=== PATIENT | female | born 1945 | race African-American/Black ===

== ENCOUNTER 2022-10-13 10:33 | Observation (INO) ==
--- NOTE | 2022-10-13 10:57 | XRay Report ---
XR chest 1V portable CLINICAL HISTORY: Chest pain, nonspecific COMPARISON STUDY: No previous studies for comparison. FINDINGS: Lung volumes are mildly diminished. There is no pneumothorax or pleural effusion. There is no evidence for pneumonia. Moderate cardiomegaly is noted. Pulmonary vascularity is normal. IMPRESSION: No acute cardiopulmonary findings. Cardiomegaly. ACT 112: Negative or not required by law. Electronically signed by: Ismael Garcia M.D. 10/13/2022 10:56 AM
[2022-10-13 11:02] LABS: Basophils # (auto) 0.02 K/uL (0-0.2); Basophils % (auto) 0.6 %; Eosinophils # (auto) 0.07 K/uL (0-0.50); Eosinophils % (auto) 2.2 %; Hematocrit (blood only) 36.1 % (37.0-47.0); Hemoglobin 11.8 g/dl (12.0-16.0); Immature Granulocytes # (auto) 0.01 K/uL (0.01-0.20); Immature Granulocytes % (auto) 0.3 %; Lymphocytes # (auto) 1.26 K/uL (1.2-3.4); Lymphocytes % (auto) 39.6 %; Mean Corpuscular Hemoglobin 29.4 pg (25.0-34.0); Mean Corpuscular Hgb Conc 32.7 g/dL (32.0-36.0); Mean Platelet Volume 9.7 fL (9.4-12.4); Monocytes # (auto) 0.26 K/uL (0.11-0.59); Monocytes % (auto) 8.2 %; Neutrophils # (auto) 1.56 K/uL (1.40-6.50); Neutrophils % (auto) 49.1 %; Platelet Count 257 K/uL (130-400); RDW Coefficient of Variation 13.5 % (11.5-14.5); RDW Standard Deviation 44.7 fL (36.4-46.3); Red Blood Count 4.01 M/uL (4.20-5.40); White Blood Count 3.18 K/ul (4.8-10.8)
[2022-10-13 11:17] LABS: Albumin Globulin Ratio 1.4 (0.9-2); Albumin Level 3.8 gm/dl (3.4-5.0); BUN Creatinine Ratio 12.3 (10-20); Bilirubin,Total 0.8 mg/dl (0.2-1.0); Calcium 8.8 mg/dl (8.6-10.3); Creatinine Clr Calc Pharmacy 35.7 ml/min; Est GFR (African American) 37.9 ml/min; Est GFR (Non-African American) 32.7 ml/min; Globulin 2.8 gm/dl (2.5-4.0); Potassium 3.4 mmol/L (3.5-5.1); Total Protein 6.6 gm/dl (6.0-8.3)
--- NOTE | 2022-10-13 12:07 | History & Physical Report ---
Date of Service October 13, 2022 Assessment & Plan (1) Chest pain: Plan: -Admit to med/tele -At this time the etiology of the patient's episode of chest discomfort this am sounds more consistent with possible reflux occurring after breakfast and while lying down, but cannot completely rule out ACS at this time. -No hypoxia, tachycardia, HTN, or pleuritic chest pain to suggest PE -Patient became nauseous after eating waffles then appeared to have a possible vaso-vagal episode with her bowel movement. She then experienced the substernal chest discomfort while lying down. -The ED staff reported ST depressions from EMS on route, her ECG in the ED does show T-wave inversion in the lateral leads -Initial high sen trop WNL, obtaining a STAT 2 hour repeat now -S/P 324 mg PO aspirin by EMS in route -Will obtain STAT TTE for further assessment; will also order a dobutamine stress echo for tomorrow morning -Continue to monitor on tele -BL SCD's and SQ heparin for DVT PPX -AM CBC, BMP, Mag (2) Hypokalemia: Plan: -Noted to be 3.4 today -likely due to her HCTZ -Will give 40 meq PO KCL now -Monitor on tele and monitor am electrolytes (3) Hyperlipidemia: Plan: -Continue statin (4) HTN (hypertension): Plan: -Stable -Continue amlodipine and coreg -Will hold HCTZ for now as her Cr appears mildly elevated and we are unsure of her baseline (5) GERD (gastroesophageal reflux disease): Plan: -Will give a dose of 20 mg IV famotidine now, then continue BID while admitted -Monitor for improvement of symptoms while on IV famotidine Plan The patient was discussed with Dr. Ivey at the time of the admission History of Present Illness Chief Complaint: Chest pain, nausea Primary Care Provider: Uriel Emmanuel is a very pleasant 77 year old female with a PMH significant for HTN, hyperlipidemia, GERD who presented to the [facility] ED via EMS on 10/13/22 with a complaint f chest pain, diaphoresis, and nausea this am. In the ED she was noted to be bradycardic with HR in the 50's, otherwise vitals were stable. Labs including CBC, CMP, High sen trop, and Covid 19 swab were significant for a potassium of 3.4, otherwise WNL. Per EMS the patient initially had some ST depressions and t-wave inversions on ECG in route. Chest xray today was negative for acute findings. Prior to admission the patient was given given 324 mg PO aspirin by EMS. At the time of the exam the patient was sitting in bed in no acute distress with her grandson sitting bedside. She is in town for his graduation from [employer] yesterday. She states that she was in her normal state of health when waking this am. She had some waffles for breakfast around 0930 today and shortly after developed nausea. She then felt as though she needed to have a bowel movement and went to the bathroom. She had a normal BM then experiencing increased nausea, as-well-as feeling hot and sweaty. She went and laid down for a few minutes and then started to develop substernal chest pressure. The discomfort did not radiate anywhere and only last for approximately 15 minutes. She states that she was nauseous again in the ambulance and was given medication which resolved her symptoms. She is currently without any of her recent symptoms. She denies recent fever, chills, cough, sob, abd pain, hematemesis, dysuria, hematuria, melena, LE swelling, and recent trauma. She denies a previous history of cardiac disease and/or ID's. No previous history of diabetes. She is able to walk up a flight of stairs without significant chest discomfort or SOB. We discussed code status, she is a Full code and would want her grandson to make medical decisions for her if she cannot make them herself. Please refer to Dr. Ivey's attestation for any changes to the treatment plan Allergies Allergy/AdvReac Type Severity Reaction Status Date / Time No Known Allergies Allergy Unverified 10/13/22 13:11 Home Medications Medication Instructions Recorded Confirmed Type amlodipine 5 mg tablet 5 mg PO DAILY 10/13/22 10/13/22 History carvedilol 12.5 mg tablet (Coreg) 12.5 mg PO BID 10/13/22 10/13/22 History hydrochlorothiazide 25 mg tablet 25 mg PO DAILY 10/13/22 10/13/22 History omeprazole magnesium 20 mg 20 mg PO DAILY 10/13/22 10/13/22 History tablet,delayed release rosuvastatin 40 mg tablet (Crestor) 40 mg PO DAILY 10/13/22 10/13/22 History Past Med/Surg History Social History (Updated 10/13/22 @ 12:38 by Domenico Samuels PA-C) Smoking Status: Never smoker Hx Alcohol Use: No Hx Substance Use: No Preferred Language: Kyrgyz Compliance 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 Products Required: No Beliefs That Will Affect Care: None Current Living Situation: Spouse Feels Safe at Home: Yes Safety Concerns: Feels Safe At This Time Assistive Devices: None Physical Exam Physical Exam: Physical Exam: General: In no acute distress, stated age, well-nourished, good hygiene HEENT: Normocephalic, atraumatic, no scleral icterus, pupils around round, symmetrical, and reactive to light, moist mucus membranes, trachea midline, no thyromegaly Chest/Pulm: No respiratory distress, symmetrical chest expansion, clear breath sounds throughout Cardiac: bradycardic rate, regular rhythm, no murmurs noted Abdomen: Negative for ascites and bruising, normoactive bowel sounds, soft, non-tender to palpation throughout Musculoskeletal: Symmetrical and without signs of acute trauma, upper and lower extremities with full ROM, no atrophy, spasticity, or flaccidity, patient with reproducible chest discomfort while palpation over the lower sternum Extremities: Radial, dorsalis pedis, and posterior tibial pulses are intact and symmetrical, no edema noted in the BL LE's Skin: Warm, dry, no rashes , lesions, or scars noted Neuro: Alert and oriented to person, place, month, year, and president, no focal defects, no tremors noted Psych: No acute distress, calm and cooperative during the exam Results & Data Results & Data Vital Signs (Past 12 Hours) Vital Signs Temp Pulse Resp BP Pulse Ox O2 Del Method 10/13/22 11:06 53 L 24 122/81 98 Room Air 10/13/22 10:45 55 L 12 96 Room Air 10/13/22 11:01 98 Room Air 10/13/22 10:40 36.8 C 54 L 20 140/81 95 Room Air Laboratory Results Abnormal lab results 10/13/22 10/13/22 Range/Units 10:40 10:40 WBC 3.18 L (4.8-10.8) K/ul RBC 4.01 L (4.20-5.40) M/uL Hgb 11.8 L (12.0-16.0) g/dl Hct 36.1 L (37.0-47.0) % Potassium 3.4 L (3.5-5.1) mmol/L Creatinine 1.54 H (0.6-1.2) mg/dl Glucose 125 H (70-99(Fasting)) mg/dl Diagnostic Findings Chest X-Ray 10/13/22 10:43 XR chest 1V portable CLINICAL HISTORY: Chest pain, nonspecific COMPARISON STUDY: No previous studies for comparison. FINDINGS: Lung volumes are mildly diminished. There is no pneumothorax or pleural effusion. There is no evidence for pneumonia. Moderate cardiomegaly is noted. Pulmonary vascularity is normal. IMPRESSION: No acute cardiopulmonary findings. Cardiomegaly. ACT 112: Negative or not required by law. Electronically signed by: Ismael Garcia M.D. 10/13/2022 10:56 AM ECG Additional Comments: Sinus bradycardia Left ventricular hypertrophy with repolarization abnormality ( R in aVL , Romhilt-Mcgregor ) Abnormal ECG No previous ECGs available Code Status & VTE Plan Code Status FUll code VTE Prophylaxis Plan VTE Prophylaxis will be ordered: Yes Supervising Physician Co-Signing Physician Notes I personally saw and examined the patient. I verified all mello points and agree with Domenico Samuels PA-C with the following exceptions and/or additions: 77 year old female presents to the ER after a nausea, diaphoretic episode, chest pain. Occurred about 20 minutes after eating waffles. Chest pressure occurred after getting up from the toilet. Better on lying down. She feels this is very different to her prior GERD. Never had a similar episode like this previously. 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 Last stress test > 2 year ago. O/E A&Ox3, HS RRR, no murmurs, Chest CTAB, Abdo SNT A/P Atypical chest pain - serial troponins, TTE, consult cardiology, if normal dobutamine stress echo tomorrow PG Care Time/CCT Total # of Minutes Spent Total Time Spent with Patient: Total time spent is greater than 50% in coordination of care (as documented) at patient's floor/unit and/or counseling patient: Coding [place] [address] INT INP/OBS CARE 2/55MIN Patient Type Established Medical Decision Making Moderate Complexity Diagnoses Chest pain R07.9 Hypokalemia E87.6 Hyperlipidemia E78.5 HTN (hypertension) I10 GERD (gastroesophageal reflux disease) K21.9
[2022-10-13] MEDS ORDERED: FAMOTIDINE 20MG IV PUSH 20 MG/5 ML SYR IV ONE (12:25)
[2022-10-13] MEDS ORDERED: POTASSIUM CHLORIDE CRTAB 20 MEQ TABCR PO STA (12:29)
[2022-10-13] MEDS ORDERED: ONDANSETRON INJ 2 MG/ML 2 ML VIAL IV PRN (12:30)
[2022-10-13] MEDS ORDERED: Patient's ALLERGY Info needs ENTERED SCH (12:45)
[2022-10-13] MEDS ORDERED: HEPARIN SOD 5,000 UNIT/0.5 ML VIAL SQ SCH (16:00)
--- NOTE | 2022-10-13 16:21 | Emergency Department Note ---
Impression & Plan Chest pain, Abnormal ECG ED Provider Note INFORMANT: Patient ED PROVIDER(S): Sarbjit Chapman MD CHIEF COMPLAINT: Chest pain PLAN: Disposition: Admitted Condition: Good Outpatient prescription management: none Referral: None MEDICAL DECISION MAKING: Patient present because of chest pain. Currently she is pain-free. Her ECG prehospital and the 1 done here and did raise concerns that this could be from a cardiac etiology. Her CBC, chemistry panel, LFTs, and lipase were unremarkable. First cardiac troponin was negative. Chest x-ray was negative. On reassessment patient was doing well and was pain-free. Given her risk factors and the abnormal ECG I discussed further management in the hospital. Patient and family were in agreement. Consultation was made with Dr. Nghia Ivey of the [facility] service. Patient was evaluated in the ER for further management. Discussed with wild life manager After review of the information above and other included data, I feel the patient requires admission. Triage Nursing notes reviewed and agree them. Vital Signs: reviewed and remarkable for no significant abnormalities Prior /Outside records reviewed: None available Differential diagnosis: Cardiac ischemia, aortic dissection, pulmonary embolism, pneumothorax, pneumonia, pericarditis, myocarditis, esophageal rupture, GERD, cholecystitis, pancreatitis, musculoskeletal, as well as other pathologies. Diagnostics, as interpreted by me: ECG: Twelve-lead ECG was sinus bradycardia 52 bpm. LVH. There is biphasic T waves present anteriorly and laterally. Prehospital ECG was reviewed and there was anterolateral T wave inversion and some slight ST depression. This ST depression is no longer present on current ECG done pain-free. Cardiac Monitoring: Cardiac monitoring ordered by me: The patient was placed on continuous cardiac monitoring and observed. It revealed a sinus bradycardic rhythm at 52 beats per minute without ectopy or evidence of dysrhythmia. Medical decision rules: none Imaging studies: Chest x-ray. Findings: A chest x-ray was performed and revealed no pneumothorax, effusion, infiltrate, pulmonary edema, free air under the diaphragm, or wide mediastinum. Impression: No acute disease. HPI: The patient is a 77 year old female who presents to the Emergency Room with complaints of chest pain. This started about 10 AM this morning and is cur rently. The patient also notes the following associated symptoms, nausea, shortness of breath, sweating, and feeling weak. Patient notes the symptoms lasted a little over 15 minutes. EMS was summoned. Patient was given aspirin. Pain resolved before nitro or any other medications given. Patient notes no history of the same. Patient has a history of high cholesterol and hypertension. The patient has taken no other medication for relieving factors. Current pain is rated as 0/10. Pt denies LOC, headache, fevers, chills, visual changes, neck pain, vomiting, abdominal pain, back pain, melena, hematochezia, urinary symptoms, numbness, weakness, lymphadenopathy, rash, or other complaints . PAST MEDICAL HISTORY: See Below, hypertension, high cholesterol PAST SURGICAL HISTORY: See Below, SOCIAL HISTORY: See Below, retired HOME MEDICATIONS: See Below ALLERGIES: See Below VITALS: See Below PHYSICAL EXAMINATION: GENERAL: Awake, alert, well-appearing, in no distress HENT: Normocephalic, atraumatic. Oropharynx unremarkable. EYES: Normal conjunctiva. Sclera non-icteric. NECK: Inspection normal. Non-tender. Supple. No nuchal rigidity. FROM. No masses. RESPIRATORY: Clear to auscultation. No wheezes. No rales. Normal respiratory effort. CARDIAC: Normal rate. Normal rhythm. No murmurs. No rubs. Extremities warm and well perfused. Pulses equal. No JVD. GI: Soft, non-distended. No tenderness to palpation. No rebound or guarding. No masses. RECTAL: Deferred. MUSCULOSKELETAL: Atraumatic. Chest examination reveals no tenderness. The back is symmetrical on inspection without obvious abnormality. There is no CVA tenderness to palpation. No joint edema. LOWER EXTREMITIES: Calves are equal size bilaterally and non-tender. No edema. No discoloration. NEURO: Normal sensorium. No sensory or motor deficits noted. SKIN: No rash or jaundice noted. Past Med/Surg History Social History (Updated 10/13/22 @ 12:38 by Domenico Samuels PA-C) Smoking Status: Never smoker Hx Alcohol Use: No Hx Substance Use: No Preferred Language: Hong Konger [place] Blindstitch Required: No Beliefs That Will Affect Care: None Current Living Situation: Spouse Feels Safe at Home: Yes Safety Concerns: Feels Safe At This Time Assistive Devices: None Allergies Allergies Allergy/AdvReac Type Severity Reaction Status Date / Time No Known Allergies Allergy Unverified 10/13/22 13:11 Home Meds Home Medications Medication Instructions Recorded Confirmed amlodipine 5 mg tablet 5 mg PO DAILY 10/13/22 10/13/22 carvedilol 12.5 mg tablet (Coreg) 12.5 mg PO BID 10/13/22 10/13/22 hydrochlorothiazide 25 mg tablet 25 mg PO DAILY 10/13/22 10/13/22 omeprazole magnesium 20 mg 20 mg PO DAILY 10/13/22 10/13/22 tablet,delayed release rosuvastatin 40 mg tablet (Crestor) 40 mg PO DAILY 10/13/22 10/13/22 Results & Data (ED) Vital Signs Vital Signs - 24 hr 10/13/22 10:40 10/13/22 11:01 10/13/22 10:45 Temperature 36.8 C Temperature Source Oral Pulse Rate 54 L 55 L Pulse Rate from SpO2 Sensor 55 L Respiratory Rate 20 12 Respiratory Effort / Characteristics Non-Labored Spontaneous Respiratory Depth Normal Respiratory Pattern Regular Blood Pressure 140/81 Blood Pressure Mean 100 Pulse Oximetry 95 98 96 Oxygen Delivery Method Room Air Room Air Room Air Sepsis Recent Fever Within 48 Hours No Sepsis New/Unexplained Change in Mental Status N/A Sepsis Action Taken by Nursing No Action Required 10/13/22 11:06 10/13/22 11:30 10/13/22 12:00 Temperature Temperature Source Pulse Rate 53 L 60 51 L Pulse Rate from SpO2 Sensor 52 L 50 L Respiratory Rate 24 17 12 Respiratory Effort / Characteristics Respiratory Depth Respiratory Pattern Blood Pressure 122/81 110/65 120/73 Blood Pressure Mean 94 80 88 Pulse Oximetry 98 95 99 Oxygen Delivery Method Room Air Room Air Room Air Sepsis Recent Fever Within 48 Hours Sepsis New/Unexplained Change in Mental Status Sepsis Action Taken by Nursing Laboratory Data 10/13/22 10:40 10/13/22 10:40 Lab Results 10/13/22 10/13/22 10/13/22 Range/Units 10:40 10:40 11:00 WBC 3.18 L (4.8-10.8) K/ul RBC 4.01 L (4.20-5.40) M/uL Hgb 11.8 L (12.0-16.0) g/dl Hct 36.1 L (37.0-47.0) % MCV 90.0 (80.0-100.0) fL MCH 29.4 (25.0-34.0) pg MCHC 32.7 (32.0-36.0) g/dL RDW Std Deviation 44.7 (36.4-46.3) fL RDW Coeff of Rui 13.5 (11.5-14.5) % Plt Count 257 (130-400) K/uL MPV 9.7 (9.4-12.4) fL Immature Gran % (Auto) 0.3 % Neut % (Auto) 49.1 % Lymph % (Auto) 39.6 % [place] % (Auto) 8.2 % Eos % (Auto) 2.2 % Baso % (Auto) 0.6 % Neut # (Auto) 1.56 (1.40-6.50) K/uL Lymph # (Auto) 1.26 (1.2-3.4) K/uL [place] # (Auto) 0.26 (0.11-0.59) K/uL Eos # (Auto) 0.07 (0-0.50) K/uL Baso # (Auto) 0.02 (0-0.2) K/uL Immature Gran # (Auto) 0.01 (0.01-0.20) K/uL Sodium 141 (136-145) mmol/L Potassium 3.4 L (3.5-5.1) mmol/L Chloride 105 (98-107) mmol/L Carbon Dioxide 28 (21-32) mmol/L Anion Gap 8 (3-11) BUN 19 (6-23) mg/dl Creatinine 1.54 H (0.6-1.2) mg/dl Est Cr Clr Drug Dosing 35.7 ml/min Est GFR ( Amer) 37.9 ml/min Est GFR (Non-Af Amer) 32.7 ml/min BUN/Creatinine Ratio 12.3 (10-20) Glucose 125 H (70-99(Fasting)) mg/dl Calcium 8.8 (8.6-10.3) mg/dl Total Bilirubin 0.8 (0.2-1.0) mg/dl AST 19 (13-39) U/L ALT 17 (7-52) U/L Alkaline Phosphatase 37 (34-104) U/L Troponin I High Sens 10.0 (0-14) pg/ml Total Protein 6.6 (6.0-8.3) gm/dl Albumin 3.8 (3.4-5.0) gm/dl Globulin 2.8 (2.5-4.0) gm/dl Albumin/Globulin Ratio 1.4 (0.9-2) Lipase 26 (11-82) U/L SARS-CoV-2, RNA, NAAT NEGATIVE (NEGATIVE) 10/13/22 Range/Units 12:18 WBC (4.8-10.8) K/ul RBC (4.20-5.40) M/uL Hgb (12.0-16.0) g/dl Hct (37.0-47.0) % MCV (80.0-100.0) fL MCH (25.0-34.0) pg MCHC (32.0-36.0) g/dL RDW Std Deviation (36.4-46.3) fL RDW Coeff of Rui (11.5-14.5) % Plt Count (130-400) K/uL MPV (9.4-12.4) fL Immature Gran % (Auto) % Neut % (Auto) % Lymph % (Auto) % [place] % (Auto) % Eos % (Auto) % Baso % (Auto) % Neut # (Auto) (1.40-6.50) K/uL Lymph # (Auto) (1.2-3.4) K/uL [place] # (Auto) (0.11-0.59) K/uL Eos # (Auto) (0-0.50) K/uL Baso # (Auto) (0-0.2) K/uL Immature Gran # (Auto) (0.01-0.20) K/uL Sodium (136-145) mmol/L Potassium (3.5-5.1) mmol/L Chloride (98-107) mmol/L Carbon Dioxide (21-32) mmol/L Anion Gap (3-11) BUN (6-23) mg/dl Creatinine (0.6-1.2) mg/dl Est Cr Clr Drug Dosing ml/min Est GFR ( Amer) ml/min Est GFR (Non-Af Amer) ml/min BUN/Creatinine Ratio (10-20) Glucose (70-99(Fasting)) mg/dl Calcium (8.6-10.3) mg/dl Total Bilirubin (0.2-1.0) mg/dl AST (13-39) U/L ALT (7-52) U/L Alkaline Phosphatase (34-104) U/L Troponin I High Sens 10.9 (0-14) pg/ml Total Protein (6.0-8.3) gm/dl Albumin (3.4-5.0) gm/dl Globulin (2.5-4.0) gm/dl Albumin/Globulin Ratio (0.9-2) Lipase (11-82) U/L SARS-CoV-2, RNA, NAAT (NEGATIVE) Administered Medications Heparin Sodium (Porcine) (Heparin Sod 5,000 Unit/0.5 Ml Vial) 5,000 units SQ Q8 JENNA Stop: 11/12/22 15:59 Last Admin: 10/13/22 15:15 Dose: Not Given Documented By: CHRISTY Discontinued Medications Famotidine (Pepcid 20mg Iv Push) 20 mg in 5 mls @ 2.5 mls/min IV NOW ONE Stop: 10/13/22 12:26 Last Admin: 10/13/22 13:35 Dose: 2.5 mls/min Documented By: ASHOK Potassium Chloride (Potassium Chloride Crtab 20 Meq Tabcr) 40 meq PO NOW STA Stop: 10/13/22 12:30 Last Admin: 10/13/22 13:38 Dose: 40 meq Documented By: ASHOK Imaging Data Radiologist's Impression: Chest X-Ray 10/13/22 10:43 XR chest 1V portable CLINICAL HISTORY: Chest pain, nonspecific COMPARISON STUDY: No previous studies for comparison. FINDINGS: Lung volumes are mildly diminished. There is no pneumothorax or pleural effusion. There is no evidence for pneumonia. Moderate cardiomegaly is noted. Pulmonary vascularity is normal. IMPRESSION: No acute cardiopulmonary findings. Cardiomegaly. ACT 112: Negative or not required by law. Electronically signed by: Ismael Garcia M.D. 10/13/2022 10:56 AM Discharge Plan Visit Data Chief Complaint: Chest Pain Stated Complaint: CHEST PAIN ED Provider: Sarbjit Chapman Discharge Problem: Chest pain, Abnormal ECG Patient Disposition: Admitted As Inpatient Discharge Instructions Interventions: ED Discharge Assessment Last Done: 10/13/22 13:50
[2022-10-13] MEDS: FAMOTIDINE 20 MG in SYRINGE 3 ML IV SCH (20:55)
[2022-10-13] MEDS: carvediloL 12.5 MG TAB PO SCH ×2 (20:56→23:21)
[2022-10-13] MEDS ORDERED: ROSUVASTATIN CALCIUM 20 MG TAB PO SCH (21:00)
[2022-10-14 07:03] LABS: Hematocrit (blood only) 35.1 % (37.0-47.0); Hemoglobin 11.5 g/dl (12.0-16.0); Mean Corpuscular Hemoglobin 29.6 pg (25.0-34.0); Mean Corpuscular Hgb Conc 32.8 g/dL (32.0-36.0); Mean Corpuscular Volume 90.5 fL (80.0-100.0); Mean Platelet Volume 9.7 fL (9.4-12.4); Platelet Count 242 K/uL (130-400); RDW Coefficient of Variation 13.8 % (11.5-14.5); RDW Standard Deviation 45.8 fL (36.4-46.3); Red Blood Count 3.88 M/uL (4.20-5.40); White Blood Count 3.86 K/ul (4.8-10.8)
[2022-10-14 07:10] LABS: BUN Creatinine Ratio 13.6 (10-20); Calcium 8.3 mg/dl (8.6-10.3); Creatinine Clr Calc Pharmacy 39.2 ml/min; Est GFR (African American) 42.5 ml/min; Est GFR (Non-African American) 36.7 ml/min
--- NOTE | 2022-10-14 07:15 | XCELERA ---
[id number] \\[id number]
[2022-10-14] MEDS: FAMOTIDINE 20 MG in SYRINGE 3 ML IV SCH (08:39)
[2022-10-14] MEDS: carvediloL 12.5 MG TAB PO SCH (08:40)
[2022-10-14] MEDS ORDERED: PANTOprazole 40 MG TAB PO SCH (09:00)
[2022-10-14] MEDS ORDERED: ASPIRIN 81 MG ECTAB PO SCH (09:00)
[2022-10-14] MEDS ORDERED: amLODIPine BESYLATE 5 MG TAB PO SCH (09:00)
[2022-10-14] MEDS ORDERED: ATROPINE SULFATE 0.1 MG/ML 10ML SYR IV ONE (09:15)
[2022-10-14] MEDS ORDERED: NITROGLYCERIN SL 0.4 MG/TAB TAB ONE (09:15)
[2022-10-14] MEDS ORDERED: METOPROLOL TARTRATE 1 MG/ML VIAL IV ONE (09:15)
[2022-10-14] MEDS ORDERED: DOBUTamine HCL 12.5 MG/ML 20 ML VIAL IV ONE (09:15)
--- NOTE | 2022-10-14 09:56 | Electrocardiogram Report ---
Test Reason : Blood Pressure : / mmHG Vent. Rate : 052 BPM Atrial Rate : 052 BPM P-R Int : 172 ms QRS Dur : 082 ms QT Int : 498 ms P-R-T Axes : 052 -10 148 degrees QTc Int : 463 ms Sinus bradycardia Left ventricular hypertrophy with repolarization abnormality Abnormal ECG No previous ECGs available Confirmed by Jose Lowery ([id number]) on 10/14/2022 9:56:40 AM Referred By: Confirmed By:Jose Lowery
--- NOTE | 2022-10-14 11:18 | XCELERA ---
[id number] \\[id number]
--- NOTE | 2022-10-14 11:29 | Cardiology Consultation ---
Date of Consultation October 14, 2022 Assessment & Plan (1) Apical variant hypertrophic cardiomyopathy: (2) Chest pain: (3) Abnormal ECG: (4) HTN (hypertension): (5) Hyperlipidemia: Plan ASSESSMENT/PLAN: 1. Apical variant hypertrophic cardiomyopathy: Based on echo imaging, suspect apical variant hypertrophic cardiomyopathy. When mention to her, she believes that this is the diagnosis for which she follows with a stable helper. Recommend continuation of current medical therapy. No significant obstruction suggested on echo imaging. Follow-up with her primary stable helper. 2. Chest pain: This occurred with what appears to be a vagal response. Could be related to her hypertrophic cardiomyopathy. This does not appear to be an ischemic event. High-sensitivity troponins were normal. Stress echo was unremarkable for ischemia. No further ischemic evaluation necessary at this time. Further evaluation may be warranted if she has recurrent issues or more typical discomfort. 3. Hypertension: Blood pressure has mostly been well controlled. No changes made today. 4. Dyslipidemia: Continue statin therapy as per her outpatient providers. 5. Abnormal ECG: ECG suggests LVH with repolarization abnormality. Echo findings as above. Repeat ECG was ordered with stable findings. 6. Disposition: No further inpatient cardiology evaluation necessary at this time. Can be discharged home from a cardiology perspective. Recommend that she follow-up with her primary stable helper, Dr. Thornton, when she returns home. Plan of care communicated with Dr. Cronin, primary hospitalist. Thank you for allowing me to participate in the care of your patient. Please christal l for any other questions or concerns. Sincerely, Daniel Lowery M.D. History of Present Illness Reason for Consultation: Domenico Samuels PA-C Requesting Physician: Chest pain, bradycardia Attending Physician: Brook Cronin, History of Present Illness Mrs. Rose is a very pleasant 77-year-old female with a history significant for hypertension, dyslipidemia, and acid reflux. She follows with a stable helper for a congenital abnormality (after discussion, she believes LV hypertrophy). She was admitted on 10/13/2022 with chest pain. She follows with Dr. Thornton for her cardiology needs in the [place] area. She recalls being told that she has an abnormality from . We discussed today's echo images and she was asked if she had apical hypertrophy of the left ventricle and she believes that is the diagnosis. She is in town for her grandsons graduation at [employer]. The day after graduation, she had just eaten a waffle and a couple coffee and was sitting at a desk when she had felt sick in the stomach. She had a loose bowel movement and then became diaphoretic with nausea, had another loose bowel movement and then developed substernal chest pressure. She laid on the floor and felt cold. The chest pressure spontaneously resolved within a few minutes but she continued to feel cold and weak. She denies radiation of the pain and she denies associated shortness of breath. EMS was called and her initial ECG here demonstrated sinus bradycardia at 52 bpm with LVH and repolarization abnormality. Her high-sensitivity troponins remained negative x5. She had an echo and then the hospitalist service also arranged for a dobutamine stress echo. She has not had any further chest pain. Exercise tolerance has been stable. She walks her dog daily for 15 minutes, without exertional symptoms. She denies syncope, near syncope, shortness of breath. There is no reported bleeding, palpitations, or edema. Following dobutamine stress echo, she developed belching but denied nausea. Review of systems: As above. Review of systems otherwise negative/unremarkable. Family history: Father from [place] at the age of 55. Mother had [place] at the age of 50. Social history: She denies tobacco or drug abuse. Occasional wine. She is and lives at home with her and dog. She has 2 children and 5 grandchildren. 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 She lives in [place]. Allergies Allergy/AdvReac Type Severity Reaction Status Date / Time No Known Allergies Allergy Unverified 10/13/22 13:11 Home Medications Medication Instructions Recorded Confirmed Type amlodipine 5 mg tablet 5 mg PO DAILY 10/13/22 10/13/22 History carvedilol 12.5 mg tablet (Coreg) 12.5 mg PO BID 10/13/22 10/13/22 History hydrochlorothiazide 25 mg tablet 25 mg PO DAILY 10/13/22 10/13/22 History omeprazole magnesium 20 mg 20 mg PO DAILY 10/13/22 10/13/22 History tablet,delayed release rosuvastatin 40 mg tablet (Crestor) 40 mg PO DAILY 10/13/22 10/13/22 History Patient History Medical History GERD (gastroesophageal reflux disease) HTN (hypertension) Hyperlipidemia Social History (Updated 10/13/22 @ 12:38 by Domenico Samuels PA-C) Smoking Status: Never smoker Hx Alcohol Use: No Hx Substance Use: No Preferred Language: Japanese Pharmacist Per Diem Required: No Beliefs That Will Affect Care: None Current Living Situation: Spouse Feels Safe at Home: Yes Safety Concerns: Feels Safe At This Time Assistive Devices: None Physical Exam Physical Exam: Gen.: No acute distress. Alert and oriented. HEENT: Anicteric sclera. Neck: No JVD. No bruits. Normal carotid upstrokes bilaterally. Cardiac: No ventricular heave. Regular and bradycardic in the 50s. Normal S1- S2. No murmurs, rubs, or gallops. Pulmonary: Clear to auscultation bilaterally without wheezes, rales, or rhonchi. Abdomen: Soft, nontender, nondistended, with normoactive bowel sounds. No bruits noted. Extremities: 2+ radial pulses bilaterally. 2+ posterior tibialis pulses bilaterally. No edema or cyanosis. Psychiatric: Affect appears appropriate. Results & Data Vital Signs (Past 12 Hours) Vital Signs Temp Pulse Pulse Resp BP Pulse Ox O2 Del Method 10/14/22 10:42 52 L 10/14/22 07:46 37.0 C 51 L 16 121/74 96 Room Air 10/14/22 03:05 37.1 C 48 L 18 131/83 98 Room Air 10/13/22 23:21 63 Laboratory Results Laboratory Results - last 24 hr 10/13/22 10/13/22 10/14/22 12:18 17:37 01:01 WBC RBC Hgb Hct MCV MCH MCHC RDW Std Deviation RDW Coeff of Rui Plt Count MPV Sodium Potassium Chloride Carbon Dioxide Anion Gap BUN Creatinine Est Cr Clr Drug Dosing Est GFR ( Amer) Est GFR (Non-Af Amer) BUN/Creatinine Ratio Glucose Calcium Magnesium Troponin I High Sens 10.9 9.6 10.1 10/14/22 10/14/22 10/14/22 06:06 06:06 06:06 WBC 3.86 L RBC 3.88 L Hgb 11.5 L Hct 35.1 L MCV 90.5 MCH 29.6 MCHC 32.8 RDW Std Deviation 45.8 RDW Coeff of Rui 13.8 Plt Count 242 MPV 9.7 Sodium 143 Potassium 4.0 Chloride 107 Carbon Dioxide 31 Anion Gap 5 BUN 19 Creatinine 1.40 H Est Cr Clr Drug Dosing 39.2 Est GFR ( Amer) 42.5 Est GFR (Non-Af Amer) 36.7 BUN/Creatinine Ratio 13.6 Glucose 92 Calcium 8.3 L Magnesium 2.0 Troponin I High Sens 9.7 Diagnostic Findings ECGs personally reviewed as noted above in HPI and: ECG 10/14/2022 at 11:30 AM: Sinus rhythm 61 bpm. LVH with repolarization abnormality including inverted T waves in anterior and lateral leads. Dobutamine stress echo 10/14/2022: Negative for ischemia at 86% MPHR. Asymmetric hypertrophy of the apex. Echo 10/13/2022: Normal LV size, wall motion, systolic function. EF 60 to 65%. Mild concentric LVH however apex appears to have significant asymmetric hypertrophy, however LV was foreshortened. Further evaluation requested during stress test. Mild MR. Mild left atrial dilation. Normal RVSP. History and physical report reviewed. Labs reviewed and notable for normal high-sensitivity troponins, mild anemia, abnormal renal function. Chest x-ray image personally reviewed from 10/13/2022: No infiltrate. No significant pleural effusion. Per radiology, no acute cardiopulmonary findings. Telemetry personally reviewed: Sinus rhythm with sinus bradycardia. No arrhythmia noted. Medications Administered Current Inpatient Medications Amlodipine Besylate (Amlodipine Besylate 5 Mg Tab) 5 mg PO DAILY [facility] Stop: 11/13/22 08:59 Last Admin: 10/14/22 08:40 Dose: 5 mg Aspirin (Aspirin 81 Mg Ectab) 81 mg PO QAM JENNA Stop: 11/13/22 08:59 Last Admin: 10/14/22 08:40 Dose: 81 mg Carvedilol (Carvedilol 12.5 Mg Tab) 12.5 mg PO BID JEN[facility] Stop: 11/12/22 20:59 Last Admin: 10/14/22 08:40 Dose: 12.5 mg Famotidine 20 mg/ Syringe 5 mls @ 2.5 mls/min IV Q12 JENNA Stop: 11/12/22 20:59 Last Admin: 10/14/22 08:39 Dose: 2.5 mls/min Ondansetron HCl (Ondansetron Inj 2 Mg/Ml 2 Ml Vial) 4 mg IV Q6H PRN PRN Reason: Nausea And Vomiting Stop: 11/12/22 12:29 Pantoprazole Sodium (Pantoprazole 40 Mg Tab) 40 mg PO DAILY JENNA Stop: 11/13/22 08:59 Last Admin: 10/14/22 08:40 Dose: 40 mg Rosuvastatin Calcium (Rosuvastatin Calcium 20 Mg Tab) 40 mg PO HS [facility] Stop: 11/12/22 20:59 Last Admin: 10/13/22 20:55 Dose: 40 mg PG Care Time/CCT Total # of Minutes Spent Total Time Spent with Patient: Total time spent is greater than 50% in coordination of care (as documented) at patient's floor/unit and/or counseling patient: Coding Level of Care Code 12986 INT INP/OBS CARE 255MIN Diagnoses Apical variant hypertrophic cardiomyopathy I42.2 Chest pain R07.9 Abnormal ECG R94.31 HTN (hypertension) I10 Hyperlipidemia E78.5
--- NOTE | 2022-10-14 12:39 | Discharge Summary ---
Discharge Summary Date of Service October 14, 2022 Notes For Next Care Provider Recommend ongoing chronic follow up for HOCM and genetic testing/child testing if desired/indicated Continue home medications except HCTZ, holding for presumed MARIAELENA creatinine 1.4 improving on day of discharge No evidence of MT on stress testing/troponins Admission Exam Per Admitting Provider General: In no acute distress, stated age, well-nourished, good hygiene HEENT: Normocephalic, atraumatic, no scleral icterus, pupils around round, symmetrical, and reactive to light, moist mucus membranes, trachea midline, no thyromegaly Chest/Pulm: No respiratory distress, symmetrical chest expansion, clear breath sounds throughout Cardiac: bradycardic rate, regular rhythm, no murmurs noted Abdomen: Negative for ascites and bruising, normoactive bowel sounds, soft, non-tender to palpation throughout Musculoskeletal: Symmetrical and without signs of acute trauma, upper and lower extremities with full ROM, no atrophy, spasticity, or flaccidity, patient with reproducible chest discomfort while palpation over the lower sternum Extremities: Radial, dorsalis pedis, and posterior tibial pulses are intact and symmetrical, no edema noted in the BL LE's Skin: Warm, dry, no rashes , lesions, or scars noted Neuro: Alert and oriented to person, place, month, year, and president, no focal defects, no tremors noted Psych: No acute distress, calm and cooperative during the exam Principal Dx & Hospital Course #1 = Principal Diagnosis (1) Chest pain: On admission, sounds like vagal episode with chest pressure, sweating, lightheadedness in the setting of GI illness and bowel movement x2. Troponin trend negative, dobutamine stress test also without concern for MT at this time. Recommend follow up with typical [facility] for HOCM Hx. Symptoms resolved by admission and without further episodes since, no further diarrhea or lightheadedness, no chest pain, no concerning arrhythmia on tele, BP normotensive. (2) Apical variant hypertrophic cardiomyopathy: Follow up Cardiology. Continue amlodipine and Coreg. (3) MARIAELENA (acute kidney injury): Creatinine 1.54 on admit with unknown baseline, held HCTZ and down to 1.4 on day of discharge. Suspect was dehydration related with GI illness and diarrhea with diuretic onboard. Recommended holding this medication until evaluated by PCP with repeat BMP. (4) HTN (hypertension): Continue amlodipine. Hold HCTZ as above. Discharge Exam Constitutional WD/WN, vitals as above Respiratory normal respiratory effort, lungs clear to auscultation Cardiovascular RRR, no murmur, no edema Updated Medication List Medication Instructions Recorded Confirmed Type amlodipine 5 mg tablet 5 mg PO DAILY 10/13/22 10/13/22 History carvedilol 12.5 mg tablet (Coreg) 12.5 mg PO BID 10/13/22 10/13/22 History hydrochlorothiazide 25 mg tablet 25 mg PO DAILY 10/13/22 10/13/22 History omeprazole magnesium 20 mg 20 mg PO DAILY 10/13/22 10/13/22 History tablet,delayed release rosuvastatin 40 mg tablet (Crestor) 40 mg PO DAILY 10/13/22 10/13/22 History Hospital Stay Data Consultations 10/13/22 12:10 ED Decision to Admit Stat 10/13/22 19:00 Consult Cardiology Routine Discharge Instructions Given to Patient (Per Discharging Provider) You were admitted to the hospital for evaluation of chest pain and sweating. We checked imaging studies of your heart, as well as a stress test, which did not show signs of a heart attack. We also did heart enzyme blood testing which also was normal, which further suggested no heart attack. You were felt to be safe for discharge home with your typical home medications (except hydrochlorothiazide, see below), and follow up with your family doctor and [place] rdiologist. You have an abnormality of the heart called Hypertrophic Cardiomyopathy (also called HOCM). This is typically a genetic condition, that can run in families, that can cause some alteration in the way the electricity passes through the heart. This condition often does not cause people any issues, but due to the possibility of causing heart problems, people with this finding are followed by Cardiologists through their lives. The medications that you will continue are in some part due to your HOCM. Because this problem can run in families, we sometimes recommend having children checked for the same abnormality. Please discuss this with your heart doctor. Overall, we believe that your vagal episode, a fancy name for almost passing out, was due to a GI illness (either viral or due to something you ate) causing dehydration and lightheadedness. The lower heart rate you had in the 50s would be considered normal with the medications you are on, as long as you feel normal on them. Lastly, due to dehydration we believe, one of your kidney numbers called creatinine was elevated to 1.4 (normal is 1.0). This should improve with time and with holding off on taking the hydrochlorothiazide you take. Please talk with your family doc about whether and when to restart this medication. If you have any questions, please call your family doc and heart doc offices. If any urgent medical concerns, please seek urgent medical attention as you did this admission. Total Time Total Time Spent Total Time Spent (In Minutes): 40 minutes Coding Level of Care Code 28138 INP/OBS DISCH >30 MIN Diagnoses Chest pain R07.9 Apical variant hypertrophic cardiomyopathy I42.2 MARIAELENA (acute kidney injury) N17.9 HTN (hypertension) I10
--- NOTE | 2022-10-16 05:03 | Electrocardiogram Report ---
Test Reason : Blood Pressure : / mmHG Vent. Rate : 061 BPM Atrial Rate : 061 BPM P-R Int : 176 ms QRS Dur : 076 ms QT Int : 450 ms P-R-T Axes : 026 -19 184 degrees QTc Int : 453 ms Poor data quality, interpretation may be adversely affected Normal sinus rhythm Voltage criteria for left ventricular hypertrophy Abnormal ECG When compared with ECG of 13-OCT-2022 10:41, T wave inversion now evident in Inferior leads Confirmed by Jose Lowery ([id number]) on 10/16/2022 5:03:42 AM Referred By: REFERRED SELF Confirmed By:Jose Lowery
== END 2022-10-14 13:36 | disposition home or self-care (01) ==
LOC: 2N 10:33 → ED 10:33 → SUATTDRO 12:27 → 2N 13:50